=== PATIENT | female | born 1940 | race Caucasian/White ===

== ENCOUNTER 2020-05-01 08:03 | Day surgery (SDC) | payer MEDICARE, OTHER ==
[~2020-05-01] VITALS: Ht 170.2 cm; Wt 92.4 kg
[~2020-05-01 08:03] MED LIST: BUPIVACAINE/PF 0.25% ONE; EPINEPHRINE 1 MG/ML, 1ML ONE; ROPIvacaine/PF 0.5%, 30 ML ONE
[2020-05-01] MEDS ORDERED: LACTATED RINGERS 1,000 ML IV SCH (09:34)
[2020-05-01] MEDS ORDERED: ESCI20TA PO (09:37)
[2020-05-01] MEDS ORDERED: ENAL10TA PO (09:37)
[2020-05-01] MEDS ORDERED: MEMA10TA PO (09:37)
[2020-05-01] MEDS ORDERED: CARV-39 PO (09:37)
[2020-05-01] MEDS ORDERED: CHLORHEXIDINE 15 ML UDC MM ONE (10:00)
[2020-05-01] MEDS ORDERED: CARVEDILOL 25 MG TABLET PO ONE (10:00)
[2020-05-01] MEDS ORDERED: LIDOCAINE/PF 1%-EPI 1:200K, 30 ML ONE (10:23)
[2020-05-01 10:25] VITALS: BP 199/104
[2020-05-01] MEDS ORDERED: FENTANYL PF 100 MCG/2ML ONE ×2 (11:59→13:27)
[2020-05-01] MEDS ORDERED: ALBUTEROL SULFATE 2.5 MG/3 ML NPPB PRN (12:30)
[2020-05-01] MEDS ORDERED: ACETAMINOPHEN 325 MG TABLET PO PRN (12:30)
[2020-05-01] MEDS ORDERED: OXYcodone 5 MG/5 ML ORAL.SOL UDC PO PRN (12:30)
[2020-05-01] MEDS ORDERED: KETOROLAC 30 MG/1 ML ONE (12:32)
[2020-05-01] MEDS ORDERED: ROPIvacaine/PF 0.5%, 30 ML INFIL ONE (12:56)
[2020-05-01] MEDS ORDERED: LIDOCAINE 1%-EPI 1:100K, 30ML INFIL ONE (12:56)
[2020-05-01] MEDS ORDERED: CEFAZOLIN 1,000 MG ONE (13:02)
[2020-05-01] MEDS ORDERED: PROPOFOL 10 MG/ML, 20ML ONE (13:02)
[2020-05-01] MEDS ORDERED: ONDANSETRON 2MG/ML, 2ML ONE (13:02)
[2020-05-01] MEDS ORDERED: LIDOCAINE-MPF 2% ,5ML ONE (13:02)
[2020-05-01] MEDS ORDERED: DEXAMETHASONE 4 MG/ML, 1ML ONE (13:02)
[2020-05-01] MEDS ORDERED: ENALAPRIL 10 MG TABLET PO ONE (13:22)
[2020-05-01] MEDS: FENTANYL PF 100 MCG/2ML IV PRN ×2 (13:26→13:35)
[2020-05-01] MEDS ORDERED: hydrALAzine 20 MG/ML, 1ML ONE ×2 (13:28→14:55)
[2020-05-01] MEDS: hydrALAzine 20 MG/ML, 1ML IV PRN ×2 (13:28→14:55)
[2020-05-01] MEDS ORDERED: OXYcodone 5 MG/5 ML ORAL.SOL UDC ONE (13:44)
[2020-05-01] MEDS ORDERED: LABETALOL 5MG/ML, 20ML ONE (14:34)
[2020-05-01] MEDS: LABETALOL 5MG/ML, 20ML IV PRN ×2 (14:35→14:54)
== END 2020-05-01 16:50 | disposition home or self-care (01) ==
LOC: OUT 08:03
PROVIDERS: ATTEND Orthopaedic Surgery
DX: S83.231A Complex tear of medial meniscus, current injury, right knee, initial encounter (principal); Z20.828 Contact with and (suspected) exposure to other viral communicable diseases; S83.281A Other tear of lateral meniscus, current injury, right knee, initial encounter; M22.41 Chondromalacia patellae, right knee; I10 Essential (primary) hypertension; F03.90 Unspecified dementia, unspecified severity, without behavioral disturbance, psychotic disturbance, mood disturbance, and anxiety; D68.9 Coagulation defect, unspecified; Z79.899 Other long term (current) drug therapy; Z83.2 Family history of diseases of the blood and blood-forming organs and certain disorders involving the immune mechanism; X58.XXXA Exposure to other specified factors, initial encounter; Y93.89 Activity, other specified; Y92.89 Other specified places as the place of occurrence of the external cause; Y99.8 Other external cause status
CPT/HCPCS: 29880; 87635; 93005; J0360; J0690; J1100; J1885; J2405; J2704; J2795; J3010; J3490; J7120; J0171